=== PATIENT | female | born 1955 | race Asian ===

== ENCOUNTER 2021-04-08 17:11 | Inpatient (IN) | payer MEDICARE, OTHER, MEDICAID ==
[~2021-04-08] VITALS: Ht 149.9 cm; Wt 57.2 kg
[2021-04-08 17:18] VITALS: BP 124/72
[2021-04-08] MEDS ORDERED: BUPROPION HCL100 MG PO (17:23)
[2021-04-08] MEDS ORDERED: NORTRIPTYLINE H10 M1 PO (17:23)
[2021-04-08] MEDS ORDERED: VENLAFAXINE H37.5 M1 PO (17:23)
[2021-04-08] MEDS ORDERED: CENTRUM SILVER1 EAC6 PO (17:24)
[2021-04-08] MEDS ORDERED: MEMANTINE HCL5 MG PO (17:24)
[2021-04-08] MEDS ORDERED: MELATONIN10 M3 PO (17:25)
[2021-04-08 17:57] LABS: CALCIUM 8.1 mg/dL (8.5-10.1); CREATININE 1.3 mg/dL (0.6-1.3); POTASSIUM 3.9 mmol/L (3.5-5.1)
[2021-04-08 18:02] LABS: ALBUMIN 2.4 g/dL (3.4-5.0); TOTAL BILIRUBIN 0.3 mg/dL (<0.1-1.0); TOTAL PROTEIN 5.4 g/dL (6.4-8.2)
[2021-04-08 18:07] LABS: ABSOLUTE EOSINOPHILS 0.1 thou/uL (0.0-0.7); ABSOLUTE LYMPHOCYTES 1.3 thou/uL (0.8-5.3); ABSOLUTE MONOCYTES 0.4 thou/uL (0.0-1.2); ABSOLUTE NEUTROPHILS 3.1 thou/uL (1.6-8.1); BASOPHILS 0.8 %; EOSINOPHILS 1.5 %; HEMATOCRIT 38.5 % (37.0-47.0); HEMOGLOBIN 13.1 gm/dL (12.0-15.0); LYMPHOCYTES 27.1 %; MCH 31.2 pg (26.0-34.0); MCHC 34.1 g/dL (28.0-37.0); MCV 91.5 fL (80.0-100.0); MONOCYTES 7.5 %; MPV 7.5 fl. (7.2-11.1); NUCLEATED RBCS 0 /100WBC; PLATELET COUNT* 247 thou/uL (150-400); POLYS 63.1 %; RDW-CV 12.3 % (10.5-14.5); WBC 4.8 thou/uL (4.0-11.0)
[2021-04-08] MEDS ORDERED: ARICEPT10 M1 PO (19:34)
[2021-04-08 21:31] VITALS: BP 98/61
[2021-04-08 21:50] VITALS: BP 102/53
[2021-04-09] VITALS (7 sets, daily range): BP systolic 07–122; BP diastolic 49–78
--- NOTE | 2021-04-09 17:24 | EKG ---
[place] [address] ELECTROCARDIOGRAM REPORT Name: GUY FAYE Room: [address] ADM [place] .R.#: [id number] Admission: 04/08/21 Attend Phys: Jus Fischer Discharge: Date of : 57 Date of Service: 04/08/21 1743 Report #: [id number] THIS REPORT FOR: //name// [facility] ED Test Date: 2021-04-08 Test Time: 17:43:04 Pat Name: GUY FAYE Department: Room: [facility] Gender: F Professional Benefits Sales Consultant: FOREIGN : 1955 Requested By: Lukas Celis Order Number: [id number] MD: Andrea Hudson Measurements Intervals [place] Rate: 67 P: 80 CA: 177 QRS: 87 QRSD: 99 T: 83 QT: 437 QTc: 462 Interpretive Statements Sinus rhythm Borderline right axis deviation RSR' in V1 or V2, probably normal variant No previous ECG available for comparison Electronically Signed On 04-09-2021 17:23:57 CDT by Andrea Hudson [email or web address] <ELECTRONICALLY SIGNED> By: Andrea Hudson MD, FACC 04/09/21 1723 174 174 Andrea Hudson MD, MERGED WITH [facility] /EPI
[2021-04-10 04:00] VITALS: BP 123/78
[2021-04-10 06:30] LABS: ABSOLUTE BASOPHILS 0.1 thou/uL (0.0-0.2); ABSOLUTE EOSINOPHILS 0.1 thou/uL (0.0-0.7); ABSOLUTE LYMPHOCYTES 2.5 thou/uL (0.8-5.3); ABSOLUTE MONOCYTES 0.4 thou/uL (0.0-1.2); ABSOLUTE NEUTROPHILS 2.1 thou/uL (1.6-8.1); BASOPHILS 1.2 %; EOSINOPHILS 2.1 %; HEMATOCRIT 33.6 % (37.0-47.0); HEMOGLOBIN 11.4 gm/dL (12.0-15.0); LYMPHOCYTES 47.4 %; MCH 31.2 pg (26.0-34.0); MCHC 33.8 g/dL (28.0-37.0); MCV 92.3 fL (80.0-100.0); MPV 7.4 fl. (7.2-11.1); NUCLEATED RBCS 0 /100WBC; PLATELET COUNT* 218 thou/uL (150-400); POLYS 41.3 %; RBC 3.64 mil/uL (4.20-5.00); RDW-CV 12.7 % (10.5-14.5); WBC 5.2 thou/uL (4.0-11.0)
[2021-04-10 06:49] LABS: CALCIUM 8.2 mg/dL (8.5-10.1); CREATININE 0.7 mg/dL (0.6-1.3); POTASSIUM 3.4 mmol/L (3.5-5.1)
[2021-04-10 08:21] VITALS: BP 99/67
[2021-04-10] MEDS ORDERED: MIRALAX119 GM PO (10:15)
[2021-04-10] MEDS ORDERED: AUGMENTIN 875-1 EACH PO (10:15)
[2021-04-10 12:41] VITALS: BP 110/71
[2021-04-10 17:20] VITALS: BP 124/75
[2021-04-10 20:00] VITALS: BP 126/78
[2021-04-11 00:31] VITALS: BP 118/76
[2021-04-11 04:52] VITALS: BP 114/68
[2021-04-11 08:15] VITALS: BP 103/55
[2021-04-11 12:26] VITALS: BP 114/71
[2021-04-11 12:42] VITALS: BP 114/71
[2021-04-11 12:49] VITALS: BP 114/71
== END 2021-04-11 13:40 | disposition home health service (06) | DRG 372 ==
LOC: M.ERS 17:11 → M.TBA-ER 19:42 → M.ORTHSURG 19:42
PROVIDERS: Internal Medicine; Physician Assistant; ADMIT Internal Medicine; ATTEND Internal Medicine
DX: A04.9 Bacterial intestinal infection, unspecified (principal); E44.0 Moderate protein-calorie malnutrition; Z20.822 Contact with and (suspected) exposure to COVID-19; F32.9 Major depressive disorder, single episode, unspecified; K59.00 Constipation, unspecified; Z68.25 Body mass index [BMI] 25.0-25.9, adult; Z23 Encounter for immunization; Z79.899 Other long term (current) drug therapy